=== PATIENT | male | born 1990 | race Caucasian/White ===

== ENCOUNTER 2021-03-23 02:35 | Outpatient (CLI) | payer SELFPAY ==
[2021-03-23 10:52] LABS: Source Nasal/Nares
[2021-03-23 13:36] LABS: COVID-19 PCR Negative (Negative)
== END 2021-03-23 02:36 | disposition home or self-care (01) ==
LOC: LBO 02:36
PROVIDERS: Visit Provider Nurse Practitioner Family
DX: Z20.822 Contact with and (suspected) exposure to COVID-19 (principal)
CPT/HCPCS: 87635

== ENCOUNTER 2021-04-18 04:02 | Outpatient (CLI) | payer SELFPAY ==
[2021-04-19 01:02] LABS: COVID-19 RT-PCR UVMMC Result Negative (Negative)
== END 2021-04-18 04:03 | disposition home or self-care (01) ==
LOC: LBO 04:03
PROVIDERS: Visit Provider Nurse Practitioner Family
DX: Z20.822 Contact with and (suspected) exposure to COVID-19 (principal)
CPT/HCPCS: U0003